=== PATIENT | male | born 1975 | race Caucasian/White ===

== ENCOUNTER → 2017-05-26 09:48 | Outpatient (CLI) | payer MEDICAID, SELFPAY ==
[2017-05-26 12:16] LABS: BUN 28 mg/dL (7-18); Creatinine, Serum 0.96 mg/dL (0.70-1.30); EST Glomerular Filtration Rate 91 mL/min (>60); Glucose 103 mg/dL (70-110)
[2017-05-26 12:17] LABS: ALB/GLOB Ratio 0.8 RATIO (0.9-2.4); AST(SGOT) 40 U/L (15-37); Alanine Aminotransfer ALT/SGPT 65 U/L (16-61); Alkaline Phosphatase 92 U/L (45-117); Anion Gap 9 (5-15); BUN/Creat Ratio 29.3 RATIO (10-20); Chloride 107 mmol/L (98-107); Est Glom Filt Rate - Afr Amer 110 mL/min (>60); Globulin 5.1 g/dL (2.2-4.2); Potassium 4.4 mmol/L (3.5-5.1); Protein, Total 9.1 g/dL (6.4-8.2); Sodium Level 140 mmol/L (136-145)
== END ==
PROVIDERS: Family Provider Internal Medicine; PCP Internal Medicine; Visit Provider Family Medicine
DX: E88.09 Other disorders of plasma-protein metabolism, not elsewhere classified (principal)
CPT/HCPCS: 36415; 80053

== ENCOUNTER → 2017-05-26 14:44 | Outpatient (CLI) | payer MEDICAID, SELFPAY ==
--- NOTE | 2017-05-26 14:46 | CT_ITS ---
STUDY: CT LEFT SHOULDER REASON FOR EXAM: Male, 42 years old. MULTIPLE LEFT SHOULDER DISLOCATIONS RADIATION DOSAGE (If Supplied By Facility): CTDIvol = ( 36.24 ) mGy, DLP = ( 654.20 ) mGycm TECHNIQUE: The patient was scanned in a multi detector CT scanner. High resolution transaxial imaging was performed without the administration of intravenous contrast material. Sagittal and coronal images were reconstructed. Individualized dose optimization techniques were used for this CT. COMPARISON: CR Shoulder Left Apr 15 2017 2:21pm FINDINGS: There is mild osteoarthritis of the glenohumeral articulation, with mild articular joint space narrowing and mild osteoarthritic spurring. Normal glenoid rim, neck and visualized scapula. There is a mild cortical depression in the posterolateral head of the humerus. Normal coracoid process. Normal visualized lateral clavicle. Normal acromioclavicular articulation. There is a Type II morphology (curved), with a neutral orientation. Normal visualized muscles and soft tissue structures. CT/Extremity Upper without Contra IMPRESSION: Hill?Sachs lesion of the left humerus Electronically Signed: Ryan Noel MD at 21:58 EST , Service support ,
--- NOTE | 2017-05-26 14:48 | CT_ITS ---
STUDY: CT LEFT SHOULDER REASON FOR EXAM: Male, 42 years old. MULTIPLE LEFT SHOULDER DISLOCATIONS RADIATION DOSAGE (If Supplied By Facility): CTDIvol = ( 36.24 ) mGy, DLP = ( 654.20 ) mGycm TECHNIQUE: The patient was scanned in a multi detector CT scanner. High resolution transaxial imaging was performed without the administration of intravenous contrast material. Sagittal and coronal images were reconstructed. Individualized dose optimization techniques were used for this CT. COMPARISON: CR Shoulder Left Apr 15 2017 2:21pm FINDINGS: There is mild osteoarthritis of the glenohumeral articulation, with mild articular joint space narrowing and mild osteoarthritic spurring. Normal glenoid rim, neck and visualized scapula. There is a mild cortical depression in the posterolateral head of the humerus. Normal coracoid process. Normal visualized lateral clavicle. Normal acromioclavicular articulation. There is a Type II morphology (curved), with a neutral orientation. Normal visualized muscles and soft tissue structures. CT/Coronals Sag Multi Obl 3-D Rec IMPRESSION: Hill?Sachs lesion of the left humerus Electronically Signed: Ryan Noel MD at 21:58 EST , Service support ,
== END ==
PROVIDERS: Family Provider Internal Medicine; PCP Internal Medicine; Visit Provider Orthopaedic Surgery
DX: M24.412 Recurrent dislocation, left shoulder (principal); M25.312 Other instability, left shoulder
CPT/HCPCS: 36415; 73200; 76377; 80053

== ENCOUNTER → 2017-05-28 13:38 | Outpatient (CLI) | payer MEDICAID, SELFPAY ==
[2017-06-01 16:09] LABS: PROEL- A/G Ratio 1.1 (0.7-1.7); PROEL- Albumin 3.9 g/dL (2.9-4.4); PROEL- Alpha-1 Globulin 0.2 g/dL (0.0-0.4); PROEL- Alpha-2 Globulin 0.5 g/dL (0.4-1.0); PROEL- Beta Globulin 1.3 g/dL (0.7-1.3); PROEL- Gamma Globulin 1.5 g/dL (0.4-1.8); PROEL- Globulin, Total 3.6 g/dL (2.2-3.9); PROEL- TOTAL PROTEIN 7.5 g/dL (6.0-8.5); PROELU- Albumin, Urine 11.5 % (.); PROELU- Alpha-1-Globulin,Ur 2.3 % (.); PROELU- Alpha-2-Globulin,Ur 5.8 % (.); PROELU- Beta Globulin, Ur 24.9 % (.); PROELU- Gamma Globulin, Ur 55.4 % (.)
[2017-06-02 08:32] LABS: Total Protein, Ur < 4.0 mg/dL (Not Estab.)
== END ==
PROVIDERS: Visit Provider Family Medicine
DX: E88.09 Other disorders of plasma-protein metabolism, not elsewhere classified (principal)
CPT/HCPCS: 36415; 84165; 84166

== ENCOUNTER → 2017-07-01 10:41 | Outpatient (CLI) | payer MEDICAID, SELFPAY ==
[2017-07-01 12:34] LABS: ALB/GLOB Ratio 0.9 RATIO (0.9-2.4); AST(SGOT) 33 U/L (15-37); Alanine Aminotransfer ALT/SGPT 45 U/L (16-61); Albumin, Serum 3.8 g/dL (3.2-5.0); Alkaline Phosphatase 96 U/L (45-117); Anion Gap 7 (5-15); BUN 13 mg/dL (7-18); BUN/Creat Ratio 14.3 RATIO (10-20); Calcium,Total 8.7 mg/dL (8.5-10.1); Chloride 107 mmol/L (98-107); Creatinine, Serum 0.91 mg/dL (0.70-1.30); EST Glomerular Filtration Rate 96 mL/min (>60); Est Glom Filt Rate - Afr Amer 116 mL/min (>60); Globulin 4.1 g/dL (2.2-4.2); Glucose 96 mg/dL (74-106); Potassium 4.3 mmol/L (3.5-5.1); Protein, Total 7.9 g/dL (6.4-8.2); Sodium Level 138 mmol/L (136-145)
== END ==
PROVIDERS: Family Provider Family Medicine; PCP Family Medicine; Visit Provider Family Medicine
DX: E88.09 Other disorders of plasma-protein metabolism, not elsewhere classified (principal)
CPT/HCPCS: 36415; 80053

== ENCOUNTER → 2022-01-09 | Outpatient (CLI) | payer MEDICAID, SELFPAY ==
--- NOTE | 2022-01-09 14:20 | CT_ITS ---
STUDY: CT LEFT SHOULDER REASON FOR EXAM: Male, 46 years old. History: assess bony glenoid and hill sachs possible surg RECENT DISLOACTION OF SHOULDER History: assess bony glenoid and hill sachs possible surg RECENT DISLOACTION OF SHOULDER RADIATION DOSAGE (If Supplied By Facility): CTDIvol = ( 24.58 ) mGy, DLP = ( 714.26 ) mGycm TECHNIQUE: The patient was scanned in a multi detector CT scanner. High resolution transaxial imaging was performed without the administration of intravenous contrast material. Sagittal and coronal images were reconstructed. Individualized dose optimization techniques were used for this CT. Comparison: xr Jan 07 2022 9:27am FINDINGS: Normal glenohumeral articulation. Normal glenoid rim, neck and visualized scapula. Normal humeral head, neck and tuberosities. Hill-Sachs lesion. Normal coracoid process. Normal visualized lateral clavicle. There is mild osteoarthritis with articular joint space narrowing. Normal visualized muscles and soft tissue structures. CT/Extremity Upper without Contra IMPRESSION: Hill-Sachs lesion. Electronically Signed: Ryan Noel MD at 14:53 EDT Reading Location ID and State: [facility] / [place] , Service support ,
== END | disposition home or self-care (01) ==
LOC: CT 14:08
PROVIDERS: PCP Family Medicine; Referring Provider Orthopaedic Surgery Sports Medicine; Visit Provider Orthopaedic Surgery Sports Medicine
DX: M25.312 Other instability, left shoulder (principal)
CPT/HCPCS: 73200

== ENCOUNTER → 2022-01-30 | Outpatient (CLI) | payer MEDICAID, SELFPAY ==
--- NOTE | 2022-01-30 12:25 | RAD_ITS ---
CLINICAL HISTORY: Male, 46 years old. Left shoulder pain. Recurrent shoulder instability. PROCEDURE: ARTHROGRAM - LEFT SHOULDER. CONSENT: The procedure as well as the benefits and possible complications including infection and bleeding were explained to the patient. Informed consent was obtained. FLUOROSCOPY TIME (if supplied): (39 seconds) minutes/seconds Injection Information: 10 cc of dilute MRI contrast. Number of images obtained: 3 TECHNIQUE: (All elements of maximal sterile barrier technique followed, including US elements as applicable) The patient was in the supine position. The overlying skin was prepped and draped in the usual sterile fashion. Following local anesthetic application and direct fluoroscopic guidance, a 22-gauge spinal needle was placed into the shoulder joint. 2 cc''s of ISOVUE 300 was injected for confirmation. Following this, 10 cc of dilute MRI contrast was injected. The patient tolerated the procedure well. MRI will follow. RAD/Arthrogram Shoulder w/ MRI IMPRESSION: Successful left shoulder arthrogram with injection of 10 cc 5 dilute MRI contrast. The patient tolerated the procedure well. MRI will follow. Electronically Signed: Justin Meyer MD at 13:47 EDT ,
--- NOTE | 2022-01-30 12:47 | MRI_ITS ---
STUDY: MRI ARTHROGRAM LEFT SHOULDER REASON FOR EXAM: Male, 46 years old. RECURRENT INSTABILITY -- ARTHROGRAM TECHNIQUE: Standardized fat and water weighted pulse sequences were obtained in all 3 orthogonal planes following the intra-articular administration of contrast. COMPARISON: None. FINDINGS: Normal supraspinatus tendon. Normal infraspinatus tendon. Normal subscapularis tendon. Normal teres minor tendon. Normal supraspinatus muscle. Normal infraspinatus muscle. Normal subscapularis muscle. Normal teres minor muscle. Normal glenohumeral articulation. There is a Hill-Sachs deformity of the posterior superior humeral head. Normal biceps labral complex. Normal intracapsular long biceps tendon. There is tear of the anterior and anterior-inferior labrum with periosteal stripping of the medial glenoid, series 2 images 12/20 through 14/20. There is tear of the superior labrum adjacent to the biceps anchor, series 3 image 10/20 and 11/20. Normal capsulo- ligamentous complex. Normal rotator interval. Normal acromioclavicular articulation. There is a Type II morphology (curved), with a neutral orientation. There is no subacromial-subdeltoid bursal fluid. Normal visualized coracohumeral and coracoacromial ligaments. Normal quadrilateral space. Normal axillary space. Normal deltoid muscle. Normal trapezius muscle. MRI/Upper Ext Jt Only W/Contrast IMPRESSION: Sequela of prior dislocation with Hill-Sachs deformity of the humeral head and ALPSA lesion with tearing of the labrum and periosteal stripping. SLAP lesion with tear of the superior labrum. Electronically Signed: Arile Reddy MD at 9:22 EDT ,
[2022-01-30] MEDS: Lidocaine 2% (5ml sdv) 5 ML VIAL.MPF INFILT (12:50)
[2022-01-30] MEDS: Iopamidol 10 ML in Syringe 1 EACH 600 ML INTRAARTIC (12:55)
[2022-01-30] MEDS: Gadoterate Meglumine Diluted 10 ML, Iopamidol 5 ML, Lidocaine 1% (20 ml mdv) 5 ML, Epin... INTRAARTIC (12:55)
== END | disposition home or self-care (01) ==
PROVIDERS: PCP Family Medicine; Referring Provider Orthopaedic Surgery Sports Medicine; Visit Provider Orthopaedic Surgery Sports Medicine
DX: M25.312 Other instability, left shoulder (principal)
CPT/HCPCS: 23350; 73222; 77002; Q9967

== ENCOUNTER 2022-02-06 09:30 | Outpatient (RCR) | payer MEDICAID, SELFPAY ==
--- NOTE | 2022-01-13 08:15 | HP.PTEVAL_ITS ---
Patient's Visit Information SANJUANITA MORGAN is a 46 year old M referred to Physical Therapy by Dr. Ryan Dallas MD with a diagnosis of Shoulder Instability and Discloation. Date of Evaluation: 01/13/22 Physical Therapist: Viviane Rob DPT - Visit Plan Frequency: 2x /Week Duration: 4 Weeks Plan: Left Shoulder Dislocation AVOID ER over 20 degrees and Forward Elevation over 90 degrees). HEP Given IE: Postural Correction, Scapular Retractions, Isometric Add/Flexion/Extn/IR - Subjective Dislocated his left shoulder- about 16 days ago- just sitting in the chair and it popped out of place. He went to the ER and they had to put him under and pop it back into place. His shoulder has dislocated about 6 times over the span over his whole life- it had been about 4 years since it had done it. He doesn't really do anything so its not normally a problem. He is not very active due to fear of the shoulder dislocating. No pain in the shoulder. Doesn't have any sensation prior to dislocation. He was working at [employer] and lost his job due to the injury and limitations from MD. No dislocations since. He has had CT scan which showed a Hill Sacks Lesion. They are planning to do surgery since he has dislocated so many times. No MOLINA, blurred vision, neck pain. No N/T in the fingers. No issues with finger dexterity or showroom consultant strength. He has returned to all normal ADL's. He is not back to playing pool He has done PT for this shoulder prior. He is right hand dominate. Sleep: not disturbed. He used a sling for 2 weeks but is not currently using. PMHx/Meds: see chart. - Objective Posture: severe FH, RS- can correct with verbal and tactile cues- but does not maintain. Gait: no deviation noted- good arm swing and trunk rotation. Palpation: not tender throughout. ROM: WFL in all planes with restrictions of FE: 90 degrees and ER 20 degrees. Strength: scap: poor- excessive winging, Shoulder: 4+/5 in neutral, Elbow: 5/5 Wrist: 5/5, Performance Improvement Coordinator: 100 lbs - Balance/Special Test Scores Quick DASH Score: 0 - Goals Goal 1:: Patient will be I with HEP and progression Goal Time Frame: 4-6 Weeks Goal 2:: Patient will maintain proper posture t/o tx session to demo increased scap s/s Goal Time Frame: 4-6 Weeks Goal 3:: Patient will report no dislocations Goal Time Frame: 4-6 Weeks - Rehabilitation Potential Physical Therapy Diagnosis: Patient presents with hypermobility- he has decrease scapular strength/stabilization leading to poor posture and shoulder instability. Rehabilitation Potential: Good - Anticipated Interventions Patient/Client Instruction: Educate patient on: Benefits of Fitness Program Therapeutic Exercise to Include: Strength training, Endurance training, Coordination, Body mechanics, Postural training, Flexibilty training, Neuromotor development, Dynamic Lumbar Stabilization, Scapular Strength/Stabilization For the Purpose of:: To improve muscle performance and motor function Thank you for the opportunity to evaluate your patient. For Medicare and Medicare HMO plans, please review the plan of care and approve it. It will need to be FAXED BACK to us at [phone] for Medicare purposes. For Medicare only, by signing this I certify the plan of care. Please let me know if there are questions or concerns regarding this plan of care. Physician Signature: Date:
--- NOTE | 2022-02-06 09:58 | HP.PTREVAL ---
Dr. Ryan Dallas MD, It has been my pleasure to treat SANJUANITA MORGAN over the last 9 visits for Shoulder Instability and Discloation. Please see the progress note below for an update on the physical therapy plan of care! Subjective: Patient reports that he is having surgert Feb 19- he is still on medical leave from work. No dislocation since the last one. Objective/Function: Posture: severe FH, RS- can correct with verbal and tactile cues- but does not maintain. Gait: no deviation noted- good arm swing and trunk rotation. Palpation: not tender throughout. ROM: WFL in all planes with restrictions of FE: 90 degrees and ER 20 degrees. Strength: scap: fair moderate winging, Shoulder: 4+/5 in neutral, Plan Plan: Left Shoulder Dislocation AVOID ER over 20 degrees and Forward Elevation over 90 degrees) Balance/Gait/Functional tests - Balance/Special Test Scores Quick DASH Score: 0 Goals Goal 1:: Patient will be I with HEP and progression Goal Time Frame: 4-6 Weeks Goal 2:: Patient will maintain proper posture t/o tx session to demo increased scap s/s Goal Time Frame: 4-6 Weeks Goal 3:: Patient will report no dislocations Goal Time Frame: 4-6 Weeks Anticipated Interventions Patient/Client Instruction: Educate patient on: Benefits of Fitness Program Therapeutic Exercise to Include: Strength training, Endurance training, Coordination, Body mechanics, Postural training, Flexibilty training, Neuromotor development, Dynamic Lumbar Stabilization, Scapular Strength/Stabilization For the Purpose of:: To improve muscle performance and motor function Please do not hesitate to contact me at [phone] by phone or if you have questions or concerns regarding this new plan of care! Sincerely, MARLENY PérezT
--- NOTE | 2022-03-27 07:06 | HP.PTDCSUM ---
It has been my pleasure to treat SANJUANITA MORGAN referred by Dr. Ryan Dallas MD, with the diagnosis of Shoulder Instability and Discloation for a total of 9 visit(s). Discharge Date: Please see the following information for a summary of their discharge status. Subjective: Patient reports that he is having surgert Feb 19- he is still on medical leave from work. No dislocation since the last one. Left shoulder Pain Intensity (Out of 10): 0 % Improvement: 50 Objective/Function: Posture: severe FH, RS- can correct with verbal and tactile cues- but does not maintain. Gait: no deviation noted- good arm swing and trunk rotation. Palpation: not tender throughout. ROM: WFL in all planes with restrictions of FE: 90 degrees and ER 20 degrees. Strength: scap: fair moderate winging, Shoulder: 4+/5 in neutral, Goal 1:: Patient will be I with HEP and progression Goal 2:: Patient will maintain proper posture t/o tx session to demo increased scap s/s Goal 3:: Patient will report no dislocations Plan: Left Shoulder Dislocation AVOID ER over 20 degrees and Forward Elevation over 90 degrees) If there are questions or concerns regarding this patient's physical therapy, please feel free to call me at [phone]. Thank you for the referral of this patient. Sincerely, Viviane Rob, DPT Balance/Gait/Functional tests - Balance/Special Test Scores Quick DASH Score: 0
== END 2022-02-06 19:00 | disposition home or self-care (01) ==
LOC: PT 09:30
PROVIDERS: PCP Family Medicine; Referring Provider Orthopaedic Surgery Sports Medicine; Visit Provider Orthopaedic Surgery Sports Medicine
DX: M25.312 Other instability, left shoulder (principal)
CPT/HCPCS: 97110; 97161; 97164

== ENCOUNTER 2023-03-17 12:45 | Emergency (ER) | payer MEDICAID, SELFPAY ==
[2023-03-17 12:46] VITALS: BP 115/82; PULSE 64; RESP 14; TEMP 36.8; O2SAT 98; BMI 28.0
--- NOTE | 2023-03-17 12:55 | EDS_ITS ---
<Statement entered by Gladys Dias MD - 03/17/23 15:04> I have personally performed a face to face assessment of the patient and have reviewed the MARLON Note. Patient presents with right great toe injury. He states yesterday he was at a shopping center. He opened his trunk and turned with the shopping cart his started to roll away. As he was running after this he tripped and fell injuring his right foot. He complains of pain and swelling to the right great toe. Patient sitting upright in bed no acute distress. Head and neck examination unremarkable. Heart is regular rate and rhythm. No lung sounds are clear. Right lower extremity examination reveals tenderness palpation with edema to the right great toe. Good cap refill distally. Right foot x-ray per my interpretation reveals questionable fracture of the proximal distal phalanx of the right great toe. No significant displacement. Radiology interpretation is reviewed and agrees. Patient is placed in a postop shoe and care instructions are discussed. Return instructions given. HPI History of Present Illness Chief Complaint: Lower Extremity Injury Narrative Narrative: 47-year-old male states a shopping cart rolled away from him so he was running after it when he tripped and fell injuring his right great toe. It is painful and bruised and swollen. He is able to ambulate. He has not taken any medication and requests something for pain. [facility] Medical History (Updated 03/17/23 @ 13:42 by JUMANA Pinto) History of fracture of left ankle Instability of left shoulder joint SLAP lesion of left shoulder Home Medications NK 01/07/22 [History Last Taken Unknown] Allergy/AdvReac Type Severity Reaction Status Date / Time No Known Allergies Allergy Verified 03/17/23 12:46 Family History Grandfather Cancer Social History Smoking Status: Former smoker alcohol intake: never ROS ROS ED ROS Narrative Neuro: Negative for motor/sensory dysfunction. Skin: Negative for wound. Musc: Positive for right toe pain, swelling, trauma. EXAM Physical Exam Narrative Exam Narrative: CONST: Patient sitting in no acute distress. EYES: Normal inspection. NECK: Normal inspection. SKIN: Color normal, no rash, warm, dry, intact. EXTREMITIES: Bruising and tenderness over right great toe, no tenderness of the ankle or dorsal foot. Full range of motion, normal strength and sensation, 2+ DP pulse and brisk cap refill. NEURO: Oriented x4. PSYCH: Normal affect. Const Vital Signs: 03/17/23 12:46 Temperature 98.2 F Temperature Source Temporal Pulse Rate 64 Respiratory Rate 14 Blood Pressure 115/82 H Blood Pressure Mean 93 Pulse Ox 98 Oxygen Delivery Method Room Air MDM MDM MDM Narrative Medical decision making narrative: Patient fell and injured his right great toe. There is bruising and tenderness of the right great toe. No nail injury or subungual hematoma. Neurovascularly intact. Differential includes toe contusion versus fracture. X-ray shows nondisplaced intra-articular fracture of the base of the distal phalanx. He was given an ice pack, ibuprofen, and a postop shoe and we discussed symptomatic care at home. He was discharged in stable condition Radiography Diagnostic Testing: Clinical Impression(s) from Imaging Studies Toe X-Ray 03/17/23 13:05 IMPRESSION: 1. Nondisplaced intra-articular fracture medial base of the distal phalanx of the great toe. 2. Soft tissue swelling great toe. Electronically Signed: Saji Agrawal MD at 13:36 EST , ED attending interpretation of right great toe x-ray shows a nondisplaced fracture at the base of the distal phalanx. Discharge Plan Triage Chief Complaint: Lower Extremity Injury Other Complaint: Disclocation ED Midlevel Provider: Angélica Love ED Provider: Gladys Dias Dx/Rx/DC Orders Clinical Impression: Closed fracture of right great toe Instructions: ED Fracture, Foot Prescriptions: No Action NK Primary Care Provider: Bolivar Trinidad Referrals: Bolivar Trinidad MD [Primary Care Provider] - Activity Restrictions/Additional Instructions: The toe fracture should heal on its own. Rest, ice, take Tylenol or ibuprofen, and use the postop shoe as needed until your regular shoes do not cause pain. Disposition Disposition: Home, Self Care
[2023-03-17] MEDS: Ibuprofen 600 MG Tablet PO (12:57)
--- NOTE | 2023-03-17 13:05 | RAD_ITS ---
EXAM: XR RIGHT TOES, 2 OR MORE VIEWS CLINICAL INDICATION: pain TECHNIQUE: Frontal, lateral and oblique views of the toes of the right foot. COMPARISON: No relevant prior studies available. FINDINGS: BONES/JOINTS: Nondisplaced intra-articular fracture medial base of the distal phalanx of the great toe. No dislocation. SOFT TISSUES: Soft tissue swelling great toe. No radiopaque foreign body. RAD/Toe(s) Min 2 Views IMPRESSION: 1. Nondisplaced intra-articular fracture medial base of the distal phalanx of the great toe. 2. Soft tissue swelling great toe. Electronically Signed: Saji Agrawal MD at 13:36 EST ,
[2023-03-17 14:14] VITALS: BP 127/72; PULSE 80; RESP 18; TEMP 37; O2SAT 99
== END 2023-03-17 14:16 | disposition home or self-care (01) ==
PROVIDERS: Emergency Provider Emergency Medicine; Visit Provider Emergency Medicine
DX: S92.424A Nondisplaced fracture of distal phalanx of right great toe, initial encounter for closed fracture (principal); Z87.891 Personal history of nicotine dependence; W01.10XA Fall on same level from slipping, tripping and stumbling with subsequent striking against unspecified object, initial encounter; Y93.89 Activity, other specified; Y92.89 Other specified places as the place of occurrence of the external cause
CPT/HCPCS: 73660; 99283